=== PATIENT | female | born 1950 | race Hispanic/Latino ===

== ENCOUNTER 2018-01-31 14:50 | Inpatient (IN) | payer MEDICARE ==
[~2018-01-31] VITALS: Ht 165.1 cm; Wt 91.5 kg
[2018-01-31] MEDS ORDERED: SODIUM CHLORIDE 0.9% 10 ML VIAL IVP PRN (15:15)
[2018-01-31 15:22] LABS: BASOPHILS % (AUTO) 1.4 % (0.0-5.0); EOSINOPHILS % (AUTO) 2.8 % (0.0-8.0); HEMATOCRIT 36.1 % (36-48); MEAN CORPUSCULAR HEMOGLOBIN 33.1 pg (27.0-33.0); MEAN CORPUSCULAR HGB CONC 33.4 g/dL (32.0-36.0); MONOCYTES % (AUTO) 9.7 % (3.0-13.0); NEUTROPHILS % (AUTO) 71.1 % (40.0-77.0); NUCLEATED RED BLOOD CELLS 0.1 % (0.0-0.19); PLATELET COUNT (AUTO) 204 K/uL (130-400); RED BLOOD CELL COUNT(AUTO) 3.64 MIL/uL (4.00-5.50); RED CELL DISTRIBUTION WIDTH 16.8 % (11.0-15.5); WHITE BLOOD COUNT (AUTO) 6.5 K/uL (4.8-10.8)
[2018-01-31 15:38] LABS: CREATININE 6.2 mg/dL (0.5-1.5); POTASSIUM 5.3 mmol/L (3.5-5.1)
[2018-01-31 15:51] LABS: ALBUMIN 3.8 g/dL (3.5-5.0); BILIRUBIN,TOTAL 0.4 mg/dL (0.2-1.0); THYROID STIMULATING HORMONE 0.82 uIU/mL (0.36-3.74); TOTAL PROTEIN, SERUM 7.2 g/dL (6.0-8.3)
[2018-01-31 15:54] LABS: B-TYPE NATRIURETIC PEPTIDE 610 pg/mL (0-100)
[2018-01-31] MEDS ORDERED: ADENOSINE 3 MG/ML 2ML VIAL IV ONE ×2 (16:22→17:00)
[2018-01-31] MEDS ORDERED: ENOXAPARIN SODIUM 100 MG/1 ML SQ ONE (18:23)
[2018-01-31 19:00] VITALS: BP 117/75
[2018-01-31] MEDS ORDERED: METO50TA18 PO (22:15)
[2018-01-31] MEDS ORDERED: LORA1TAB3 PO (22:15)
[2018-01-31] MEDS ORDERED: LISI40TA4 PO (22:15)
[2018-01-31] MEDS ORDERED: ESOM40CA PO (22:15)
[2018-01-31] MEDS ORDERED: ASPI-1197 PO (22:15)
[2018-01-31] MEDS ORDERED: AMLO10TA6 PO (22:15)
[2018-01-31] MEDS ORDERED: HYDR100T27 PO (22:15)
[2018-01-31 23:00] VITALS: BP 121/75
[2018-02-01 03:00] VITALS: BP 111/61
[2018-02-01 03:40] LABS: HEMATOCRIT 32.8 % (36-48); MEAN CORPUSCULAR HEMOGLOBIN 32.3 pg (27.0-33.0); MEAN CORPUSCULAR VOLUME 97.7 fL (79-99); PLATELET COUNT (AUTO) 176 K/uL (130-400); RED BLOOD CELL COUNT(AUTO) 3.35 MIL/uL (4.00-5.50); RED CELL DISTRIBUTION WIDTH 16.5 % (11.0-15.5); WHITE BLOOD COUNT (AUTO) 5.6 K/uL (4.8-10.8)
[2018-02-01 03:57] LABS: B-TYPE NATRIURETIC PEPTIDE 652 pg/mL (0-100)
[2018-02-01 04:02] LABS: ALBUMIN 3.3 g/dL (3.5-5.0); BILIRUBIN,TOTAL 0.4 mg/dL (0.2-1.0); CREATININE 7.4 mg/dL (0.5-1.5); THYROID STIMULATING HORMONE 0.82 uIU/mL (0.36-3.74); TOTAL PROTEIN, SERUM 6.5 g/dL (6.0-8.3)
[2018-02-01 07:25] VITALS: BP 102/42
[2018-02-01] MEDS: PANTOPRAZOLE SODIUM 40 MG TABLET.DR PO SCH (08:50)
[2018-02-01] MEDS: LORAZEPAM 1 MG TABLET PO SCH ×2 (08:50→21:16)
[2018-02-01] MEDS: ASPIRIN 81MG TAB.CHEW PO SCH (08:50)
[2018-02-01] MEDS: LISINOPRIL 40 MG TABLET PO SCH (09:00)
[2018-02-01] MEDS ORDERED: AMLODIPINE BESYLATE 5 MG TAB PO SCH (09:00)
[2018-02-01] MEDS ORDERED: HYDRALAZINE HCL 25 MG TABLET PO SCH ×2 (09:00)
[2018-02-01] MEDS ORDERED: METOPROLOL TARTRATE 50 MG TAB PO SCH (09:00)
[2018-02-01] MEDS ORDERED: NPH,100V SQ (10:50)
[2018-02-01 11:12] VITALS: BP 125/67
[2018-02-01] MEDS: SODIUM CHLORIDE 0.9% 1000ML 1,000 ML IV SCH ×2 (11:15→21:15)
[2018-02-01] MEDS ORDERED: SODIUM CHLORIDE 0.9% 1000ML 1,000 ML IV ONE (11:19)
[2018-02-01] MEDS ORDERED: 0.9% SODIUM CHLORIDE 250 ML IV BAG IV PRN (12:15)
[2018-02-01] MEDS ORDERED: SODIUM CHLORIDE 0.9% 1000ML 1,000 ML IV PRN (12:15)
[2018-02-01] MEDS ORDERED: ALBUMIN (HUMAN) 25% 100 ML IV PRN (12:15)
[2018-02-01 16:14] VITALS: BP 136/83
[2018-02-01 19:43] VITALS: BP 135/77
[2018-02-01] MEDS: APIXABAN 5 MG TABLET PO SCH (21:16)
[2018-02-01] MEDS: METOPROLOL TARTRATE 50 MG TAB PO SCH (21:17)
[2018-02-01 23:45] VITALS: BP 126/74
[2018-02-02 03:46] VITALS: BP 115/68
[2018-02-02] MEDS: SODIUM CHLORIDE 0.9% 1000ML 1,000 ML IV SCH ×2 (06:03→16:20)
[2018-02-02 07:00] VITALS: BP 136/84
[2018-02-02] MEDS: LORAZEPAM 1 MG TABLET PO SCH ×2 (09:12→20:58)
[2018-02-02] MEDS: AMLODIPINE BESYLATE 5 MG TAB PO SCH (09:12)
[2018-02-02] MEDS: METOPROLOL TARTRATE 50 MG TAB PO SCH ×2 (09:12→20:58)
[2018-02-02] MEDS: PANTOPRAZOLE SODIUM 40 MG TABLET.DR PO SCH (09:12)
[2018-02-02] MEDS: ASPIRIN 81MG TAB.CHEW PO SCH (09:13)
[2018-02-02] MEDS: LISINOPRIL 40 MG TABLET PO SCH (09:13)
[2018-02-02] MEDS: APIXABAN 5 MG TABLET PO SCH ×2 (10:17→20:58)
[2018-02-02 11:00] VITALS: BP 127/76
[2018-02-02] MEDS: METOPROLOL TARTRATE 1 MG/ML 5ML VIAL IV PRN ×2 (13:36→13:49)
[2018-02-02 16:00] VITALS: BP 138/76
[2018-02-02] MEDS: DILTIAZEM HCL 5 MG/ML 10 ML VIAL IV SCH (16:08)
[2018-02-02] MEDS: DILTIAZEM HCL 120 MG CAP.SR.24H PO SCH (16:09)
[2018-02-02] MEDS: INSULIN LISPRO 100 UNIT/ML 3ML SQ SCH ×2 (16:18→20:56)
[2018-02-02 20:10] VITALS: BP 136/73
[2018-02-02 23:53] VITALS: BP 130/59
[2018-02-03] MEDS ORDERED: BENZONATATE 100 MG CAPSULE PO ONE (00:41)
[2018-02-03] MEDS ORDERED: BENZONATATE 100 MG CAPSULE PO PRN (00:45)
[2018-02-03] MEDS: SODIUM CHLORIDE 0.9% 1000ML 1,000 ML IV SCH ×2 (00:47→12:44)
[2018-02-03 04:00] VITALS: BP 143/63
[2018-02-03] MEDS: INSULIN LISPRO 100 UNIT/ML 3ML SQ SCH ×3 (06:31→16:30)
[2018-02-03 07:00] VITALS: BP 136/72
[2018-02-03] MEDS: DILTIAZEM HCL 5 MG/ML 10 ML VIAL IV SCH (07:21)
[2018-02-03] MEDS: PANTOPRAZOLE SODIUM 40 MG TABLET.DR PO SCH (09:28)
[2018-02-03] MEDS: LORAZEPAM 1 MG TABLET PO SCH (09:28)
[2018-02-03] MEDS: METOPROLOL TARTRATE 50 MG TAB PO SCH (09:28)
[2018-02-03] MEDS: AMLODIPINE BESYLATE 5 MG TAB PO SCH (09:28)
[2018-02-03] MEDS: ASPIRIN 81MG TAB.CHEW PO SCH (09:28)
[2018-02-03] MEDS: LISINOPRIL 40 MG TABLET PO SCH (09:28)
[2018-02-03] MEDS: DILTIAZEM HCL 120 MG CAP.SR.24H PO SCH (09:29)
[2018-02-03 11:00] VITALS: BP 134/72
[2018-02-03] MEDS ORDERED: APIXABAN 2.5 MG TABLET PO ONE ×2 (11:14→16:25)
[2018-02-03] MEDS ORDERED: BENZ-51 PO (15:03)
[2018-02-03] MEDS ORDERED: APIX2.5T PO (15:03)
[2018-02-03] MEDS ORDERED: DILT120C89 PO (15:03)
[2018-02-03] MEDS ORDERED: AMLO5TAB4 PO (15:03)
[2018-02-03] MEDS ORDERED: METO50 PO (15:03)
[2018-02-03 16:00] VITALS: BP 130/48
[2018-02-03] MEDS ORDERED: APIXABAN 2.5 MG TABLET PO SCH (21:00)
== END 2018-02-03 18:00 | disposition home or self-care (01) | DRG 308 ==
LOC: EDH 14:50 → OBSVTOIN 14:51 → EDHIP 14:51 → 2AH 18:52
PROVIDERS: ADMIT Internal Medicine; ATTEND Internal Medicine
PROC: 5A1D70Z Performance of Urinary Filtration, Intermittent, Less than 6 Hours Per Day (ICD-10-PCS; principal; 2018-02-01)
DX: I48.91 Unspecified atrial fibrillation (principal); N18.6 End stage renal disease; D68.59 Other primary thrombophilia; I13.11 Hypertensive heart and chronic kidney disease without heart failure, with stage 5 chronic kidney disease, or end stage renal disease; Z99.2 Dependence on renal dialysis; E11.21 Type 2 diabetes mellitus with diabetic nephropathy; E11.22 Type 2 diabetes mellitus with diabetic chronic kidney disease; E66.9 Obesity, unspecified; Z68.33 Body mass index [BMI] 33.0-33.9, adult; E78.2 Mixed hyperlipidemia; F41.9 Anxiety disorder, unspecified; I25.10 Atherosclerotic heart disease of native coronary artery without angina pectoris; I47.1 Supraventricular tachycardia; I48.92 Unspecified atrial flutter; K21.9 Gastro-esophageal reflux disease without esophagitis; Z79.4 Long term (current) use of insulin; Z90.49 Acquired absence of other specified parts of digestive tract; Z88.0 Allergy status to penicillin; Z91.041 Radiographic dye allergy status; I95.9 Hypotension, unspecified
CPT/HCPCS: 36415; 71046; 80053; 82948; 83880; 84443; 85025; 85027; 90935; 93005; 93306; J0153; J1650; J3490; J7030

== ENCOUNTER 2018-05-02 06:04 | Day surgery (SDC) | payer MEDICARE ==
[2018-05-01 10:50] VITALS: BP 131/75
[2018-05-01 11:11] LABS: BASOPHILS % (AUTO) 0.9 % (0.0-5.0); LYMPHOCYTES % (AUTO) 9.9 % (21.0-51.0); MEAN CORPUSCULAR HEMOGLOBIN 32.1 pg (27.0-33.0); MEAN CORPUSCULAR HGB CONC 32.9 g/dL (32.0-36.0); MEAN CORPUSCULAR VOLUME 97.5 fL (79-99); MONOCYTES % (AUTO) 9.9 % (3.0-13.0); NEUTROPHILS % (AUTO) 77.3 % (40.0-77.0); NUCLEATED RED BLOOD CELLS 0.1 % (0.0-0.19); PLATELET COUNT (AUTO) 187 K/uL (130-400); RED BLOOD CELL COUNT(AUTO) 3.69 MIL/uL (4.00-5.50); RED CELL DISTRIBUTION WIDTH 14.8 % (11.0-15.5)
[2018-05-01 11:13] LABS: POTASSIUM 4.7 mmol/L (3.5-5.1)
[2018-05-01 11:15] LABS: CREATININE 8.7 mg/dL (0.5-1.5)
[2018-05-01 11:39] LABS: INR 1.17 (0.85-1.15); PARTIAL THROMBOPLASTIN TIME 34.9 SEC (26.3-35.5); PROTHROMBIN TIME 12.2 SEC (9.6-11.6)
--- NOTE | 2018-05-01 12:12 | NUR ---
IODINE ALLERGY CALLED [facility] [address] TO INFORM DR. CALDERON RE PT'S ALLERGY TO IODINE, SPOKE WITH PRASANNA. PER PRASANNA SHE WILL CALL ME BACK.
--- NOTE | 2018-05-01 13:37 | NUR ---
IODINE ALLERGY FOLLOW UP CALL TO [facility] RE IODINE ALLERGY. I WAS INFORMED THAT DR. CALDERON HAD JUST WALKED IN, WAS ASKED RE PT'S ALLERGY, AND THAT PER DR. CALDERON HE DOES NOT USE CONTRAST FOR AFLUTTER ABLATION. NO FURTHER ORDERS GIVEN.
[~2018-05-02] VITALS: Ht 157.5 cm; Wt 85.5 kg
[2018-05-02] VITALS (9 sets, daily range): BP systolic 114–128; BP diastolic 47–65
[~2018-05-02 06:04] MED LIST: AMLO5TAB4 PO; APIX2.5T PO; ASPI-1197 PO; DILT120C47 PO; ESOM40CA PO; INSREG SQ; LISI40TA4 PO; LORA1TAB3 PO; METO50 PO; NPH,100V11 SQ; RENVELA PO
[2018-05-02] MEDS ORDERED: SODIUM CHLORIDE 0.9% 1000ML 1,000 ML IV ONE (06:16)
--- NOTE | 2018-05-02 07:16 | NUR ---
NURSING: NOTIFIED DR. CALDERON OF PATIENT BLOOD SUGAR OF 250 THIS MORNING PRIOR TO PROCEDURE, WILL PROCEED WITH PROCEDURE, INSTRUCTED TO CHECK BLOOD SUGAR UPON ARRIVAL AFTER PROCEDURE.
[2018-05-02] MEDS ORDERED: LIDOCAINE HCL 2% 20ML ONE (07:52)
[2018-05-02] MEDS ORDERED: MIDAZOLAM HCL 1 MG/ML 2ML VIAL ONE ×3 (07:52→08:29)
[2018-05-02] MEDS ORDERED: MEPERIDINE-PF 50 MG/ML SYG ONE (07:52)
[2018-05-02] MEDS ORDERED: MEPERIDINE-PF 25 MG/ML SYG ONE ×2 (08:27→08:30)
[2018-05-02] MEDS ORDERED: DEXTROSE 50%-WATER 50 ML DISP.SYRIN IV PRN (09:30)
[2018-05-02] MEDS ORDERED: ACETAMINOPHEN 325 MG TAB PO PRN (09:30)
[2018-05-02] MEDS ORDERED: GLUCAGON 1MG KIT 1 MG ML IM PRN (09:30)
[2018-05-02] MEDS ORDERED: INSULIN HUMULIN R 100 UNIT/ML 3ML SQ SCH (11:30)
--- NOTE | 2018-05-02 13:11 | NUR ---
PT TOLERATED PROCEDURE WELL, NO C/O CHEST PAIN, PT STABLE. DRESSING TO RT GROIN IS D/I NO HEMATOMA. POST CARE INSTRUCTIONS GIVEN TO PT AND DAUGHTER AT BEDSIDE, BOTH VERBALIZED UNDERSTANDING. INSTRUCTED PT TO TAKE ELIQUIS MEDICATION TODAY AT 5PM PER DR. CALDERON. PT WILL CALL [facility] TO RESCHEDULE HER FOLLOW UP APPOINTMENT, ORIGINAL APPOINTMENT WAS SCHEDULED ON DAY OF DIALYSIS. PT PLACED IN A WHEELCHAIR DRIVEN HOME BY DAUGHTER.
== END 2018-05-02 13:11 | disposition home or self-care (01) ==
LOC: DAH 06:04
PROVIDERS: ATTEND Internal Medicine Cardiovascular Disease
DX: I48.92 Unspecified atrial flutter (principal); I12.0 Hypertensive chronic kidney disease with stage 5 chronic kidney disease or end stage renal disease; E11.22 Type 2 diabetes mellitus with diabetic chronic kidney disease; N18.6 End stage renal disease; Z99.2 Dependence on renal dialysis; Z79.84 Long term (current) use of oral hypoglycemic drugs; Z79.4 Long term (current) use of insulin; E66.9 Obesity, unspecified; K21.9 Gastro-esophageal reflux disease without esophagitis; M19.90 Unspecified osteoarthritis, unspecified site; Z68.32 Body mass index [BMI] 32.0-32.9, adult; Z79.899 Other long term (current) drug therapy; Z80.9 Family history of malignant neoplasm, unspecified; Z88.8 Allergy status to other drugs, medicaments and biological substances; Z88.0 Allergy status to penicillin
CPT/HCPCS: 36415; 80048; 82948 ×2; 85025; 85610; 85730; 93613; 93621; 93653; A4606; A4649; C1730; C1732; C1893; C1894 ×2; J1644; J1815; J2175 ×3; J2250 ×3; J3490; J7030; 99156; 99157

== ENCOUNTER → 2019-05-09 | Outpatient (CLI) | payer MEDICARE ==
[2019-05-09 08:55] LABS: BASOPHILS % (AUTO) 0.5 % (0.0-5.0); EOSINOPHILS % (AUTO) 0.8 % (0.0-8.0); HEMATOCRIT 30.3 % (36-48); LYMPHOCYTES % (AUTO) 6.5 % (21.0-51.0); MEAN CORPUSCULAR HEMOGLOBIN 30.2 pg (27.0-33.0); MEAN CORPUSCULAR HGB CONC 31.4 g/dL (32.0-36.0); MEAN CORPUSCULAR VOLUME 96.2 fL (79-99); MONOCYTES % (AUTO) 10.5 % (3.0-13.0); NEUTROPHILS % (AUTO) 81.1 % (40.0-77.0); PLATELET COUNT (AUTO) 366 K/uL (130-400); RED BLOOD CELL COUNT(AUTO) 3.15 MIL/uL (4.00-5.50); RED CELL DISTRIBUTION WIDTH 13.6 % (11.0-15.5); WHITE BLOOD COUNT (AUTO) 8.3 K/uL (4.8-10.8)
== END | disposition home or self-care (01) ==
LOC: RAH 08:26
PROVIDERS: ATTEND Urology
DX: N28.89 Other specified disorders of kidney and ureter (principal); M47.817 Spondylosis without myelopathy or radiculopathy, lumbosacral region; K44.9 Diaphragmatic hernia without obstruction or gangrene; K80.80 Other cholelithiasis without obstruction; J90 Pleural effusion, not elsewhere classified; D30.00 Benign neoplasm of unspecified kidney
CPT/HCPCS: 36415; 74176; 85025

== ENCOUNTER 2019-07-07 22:56 | Emergency (ER) | payer MEDICARE ==
[~2019-07-07 22:56] MED LIST changes: +LEVO500T2 PO
[2019-07-07] MEDS ORDERED: NITROGLYCERIN 1GM/1 INCH PACKET TD ONE (23:26)
[2019-07-07 23:42] LABS: BASOPHILS % (AUTO) 0.9 % (0.0-5.0); EOSINOPHILS % (AUTO) 3.7 % (0.0-8.0); LYMPHOCYTES % (AUTO) 9.6 % (21.0-51.0); MEAN CORPUSCULAR HEMOGLOBIN 30.6 pg (27.0-33.0); MEAN CORPUSCULAR HGB CONC 31.7 g/dL (32.0-36.0); MEAN CORPUSCULAR VOLUME 96.5 fL (79-99); MONOCYTES % (AUTO) 8.6 % (3.0-13.0); NEUTROPHILS % (AUTO) 76.9 % (40.0-77.0); PLATELET COUNT (AUTO) 235 K/uL (130-400); RED BLOOD CELL COUNT(AUTO) 3.73 MIL/uL (4.00-5.50); RED CELL DISTRIBUTION WIDTH 15.1 % (11.0-15.5); WHITE BLOOD COUNT (AUTO) 6.5 K/uL (4.8-10.8)
[2019-07-07 23:55] LABS: CREATININE 4.6 mg/dL (0.5-1.5); POTASSIUM 4.1 mmol/L (3.5-5.1)
[2019-07-07 23:58] LABS: INR 1.2 (0.85-1.15); PARTIAL THROMBOPLASTIN TIME 29.2 SEC (26.3-35.5); PROTHROMBIN TIME 12.9 SEC (9.6-11.6)
[2019-07-08] LABS: ALBUMIN 3.7 g/dL (3.5-5.0); BILIRUBIN,TOTAL 0.6 mg/dL (0.2-1.0); TOTAL PROTEIN, SERUM 7.8 g/dL (6.0-8.3)
[2019-07-08] MEDS ORDERED: DEXTROSE 50%-WATER 50 ML DISP.SYRIN IV PRN (02:15)
[2019-07-08] MEDS ORDERED: GLUCAGON 1MG KIT 1 MG ML IM PRN (02:15)
[2019-07-08] MEDS ORDERED: INSULIN HUMULIN R 100 UNIT/ML 3ML SQ SCH (02:15)
[2019-07-08] MEDS ORDERED: IPRATROPIUM/ALBUTEROL SULFATE 3 ML SOLUTION IH ONE (02:43)
== END 2019-07-08 05:23 | disposition home or self-care (01) ==
LOC: EDH 22:56 → EDHIP 07-08 01:50 → UNDOADMIN 07-08 01:50 → EDH 07-08 05:23
DX: T82.838A Hemorrhage due to vascular prosthetic devices, implants and grafts, initial encounter (principal); Z79.01 Long term (current) use of anticoagulants; I48.91 Unspecified atrial fibrillation; I12.0 Hypertensive chronic kidney disease with stage 5 chronic kidney disease or end stage renal disease; E11.22 Type 2 diabetes mellitus with diabetic chronic kidney disease; N18.6 End stage renal disease; M19.90 Unspecified osteoarthritis, unspecified site; E78.5 Hyperlipidemia, unspecified; Z90.49 Acquired absence of other specified parts of digestive tract; Z98.890 Other specified postprocedural states
CPT/HCPCS: 36415; 80053; 85025; 85610; 85730; 94640

== ENCOUNTER 2020-02-02 23:15 | Emergency (ER) | payer MEDICARE ==
[2020-02-02] MEDS ORDERED: OCTYL 2-CYANOACRYLATE 1 EACH TP ONE (23:41)
[2020-02-02 23:54] LABS: BASOPHILS % (AUTO) 0.7 % (0.0-5.0); EOSINOPHILS % (AUTO) 4.2 % (0.0-8.0); HEMATOCRIT 34.3 % (36-48); LYMPHOCYTES % (AUTO) 7.9 % (21.0-51.0); MEAN CORPUSCULAR HEMOGLOBIN 30.7 pg (27.0-33.0); MEAN CORPUSCULAR HGB CONC 33.2 g/dL (32.0-36.0); MEAN CORPUSCULAR VOLUME 92.5 fL (79-99); MONOCYTES % (AUTO) 11.3 % (3.0-13.0); NEUTROPHILS % (AUTO) 75.4 % (40.0-77.0); PLATELET COUNT (AUTO) 230 K/uL (130-400); RED BLOOD CELL COUNT(AUTO) 3.71 MIL/uL (4.00-5.50); RED CELL DISTRIBUTION WIDTH 14.4 % (11.0-15.5); WHITE BLOOD COUNT (AUTO) 7.6 K/uL (4.8-10.8)
[2020-02-03] LABS: CREATININE 4.2 mg/dL (0.5-1.5); POTASSIUM 4.3 mmol/L (3.5-5.1)
[2020-02-03 00:05] LABS: ALBUMIN 3.9 g/dL (3.5-5.0); BILIRUBIN,TOTAL 0.6 mg/dL (0.2-1.0)
[2020-02-03 00:06] LABS: INR 1.17 (0.85-1.15); PARTIAL THROMBOPLASTIN TIME 28.8 SEC (26.3-35.5); PROTHROMBIN TIME 12.6 SEC (9.6-11.6)
== END 2020-02-03 00:49 | disposition home or self-care (01) ==
LOC: EDH 23:15
DX: T82.838A Hemorrhage due to vascular prosthetic devices, implants and grafts, initial encounter (principal); I12.0 Hypertensive chronic kidney disease with stage 5 chronic kidney disease or end stage renal disease; E11.22 Type 2 diabetes mellitus with diabetic chronic kidney disease; N18.6 End stage renal disease; M19.90 Unspecified osteoarthritis, unspecified site; E78.5 Hyperlipidemia, unspecified; Z91.041 Radiographic dye allergy status; Z99.2 Dependence on renal dialysis; Z88.0 Allergy status to penicillin; Z98.890 Other specified postprocedural states
CPT/HCPCS: 36415; 80053; 85025; 85610; 85730; 93005

== ENCOUNTER 2020-05-29 02:50 | Emergency (ER) | payer MEDICARE ==
[~2020-05-29 02:50] MED LIST changes: -LISI40TA4 PO; +LISI40TA9 PO
[2020-05-29] MEDS ORDERED: OCTYL 2-CYANOACRYLATE 1 EACH TP ONE (05:21)
[2020-05-29] MEDS ORDERED: ACETAMINOPHEN 325 MG TAB ONE (05:43)
== END 2020-05-29 06:40 | disposition home or self-care (01) ==
LOC: EDH 02:50
DX: T82.838A Hemorrhage due to vascular prosthetic devices, implants and grafts, initial encounter (principal); M19.90 Unspecified osteoarthritis, unspecified site; K21.9 Gastro-esophageal reflux disease without esophagitis; E11.9 Type 2 diabetes mellitus without complications; I10 Essential (primary) hypertension; E78.5 Hyperlipidemia, unspecified; Z90.49 Acquired absence of other specified parts of digestive tract; Z98.890 Other specified postprocedural states; Z88.0 Allergy status to penicillin; Z91.041 Radiographic dye allergy status
CPT/HCPCS: 82948

== ENCOUNTER 2020-07-08 00:56 | Emergency (ER) | payer MEDICARE | END 2020-07-08 02:55 | disposition home or self-care (01) | LOC: EDH 00:56 | DX: T82.838A Hemorrhage due to vascular prosthetic devices, implants and grafts, initial encounter (principal); I12.0 Hypertensive chronic kidney disease with stage 5 chronic kidney disease or end stage renal disease; E11.22 Type 2 diabetes mellitus with diabetic chronic kidney disease; N18.6 End stage renal disease; M19.90 Unspecified osteoarthritis, unspecified site; Z90.49 Acquired absence of other specified parts of digestive tract; Z98.890 Other specified postprocedural states; Z88.0 Allergy status to penicillin; Z91.041 Radiographic dye allergy status; Z99.2 Dependence on renal dialysis; Y92.89 Other specified places as the place of occurrence of the external cause ==